=== PATIENT | female | born 1980 | race Caucasian/White ===

== ENCOUNTER 2020-11-01 13:59 | Emergency (ER) | payer OTHER, SELFPAY ==
--- NOTE | ~2020-11-01 | XR_ITS ---
EXAMINATION: XR ankle RT min 3V, XR foot RT min 3V DATE: 11/01/2020 14:37 INDICATION: None TECHNIQUE: 1. Anteroposterior, mortise, additional oblique and lateral view of the right ankle were obtained. 2. Dorsoplantar, two oblique and lateral views of the right foot were obtained. COMPARISON: None. FINDINGS: Alignment of the right foot and ankle is normal. No fracture. 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 Bunion with cystic change at the medial head of the first metatarsal and mild ov erlying soft tissue swelling. Moderate-sized plantar calcaneal spur. No ankle joint effusion. The sof t tissues are unremarkable. IMPRESSION: 1. No acute osseous abnormality. Reviewed, dictated and finalized at location A. [employer] IMPRESSION: 1. No acute osseous abnormality.
[2020-11-01 14:10] VITALS: BP 157/94; PULSE 85; RESP 20; TEMP 36.1; O2SAT 98
--- NOTE | 2020-11-01 14:14 | ED.LOWEXIN ---
HPI - Extremity Injury (Lower) General Chief Complaint: Extremity Injury, Lower Stated Complaint: Lower Extremity Injury, Lower Time Seen by Provider: 11/01/20 14:14 Source: patient and RN notes reviewed History of Present Illness HPI Narrative: Patient is a 40-year-old female who presents the urgent care with complaints of right foot and ankle pain. Patient states that she tripped over her own feet approximately week and a half ago and believes that she rolled the right ankle. Patient states that she has elevated the foot and used Excedrin for pain. States the swelling has gone down tremendously but she is still having pain especially with weightbearing and ambulation. Patient denies hitting her head or any other injuries due to the fall. No other acute complaints. No acute distress noted. Patient aware of the plan of care. Some parts of this dictation were generated by voice recognition software and may contain typographical and/or grammatical inaccuracies. Related Data Home Medications Medication Instructions Recorded Confirmed No Home Medications 11/01/20 11/01/20 Allergies Allergy/AdvReac Type Severity Reaction Status Date / Time No Known Allergies Allergy Verified 11/01/20 14:21 Review of Systems Review of Systems: Narrative: CONSTITUTIONAL: Denies fever, chills, or sweats. EYES: Denies visual changes, redness, or discharge. ENT: Denies rhinorrhea, congestion, sore throat, or otalgia. CARDIOVASCULAR: Denies chest pain, palpitations, or edema. RESPIRATORY: Denies cough or dyspnea. GASTROINTESTINAL: Denies abdominal pain, nausea, vomiting, or diarrhea. GENITOURINARY: Denies dysuria or hematuria. SKIN: Denies rash or itching. MUSCULOSKELETAL: Reports of right foot and ankle pain due to fall NEUROLOGIC: Denies headache, numbness, or weakness. All other systems reviewed are negative, except as documented in HPI. PMFSH Comments At the time of my signature, I reviewed and agree with the nursing past medical, surgical, social, and family history. There is no relevant family history pertinent to the patient complaint. Exam Narrative: Exam Narrative: GENERAL: This is a well-nourished, well-developed patient, in no apparent distress. HEAD: normocephalic, atraumatic. EYES: PERRL. Sclera clear/white. Vision is grossly intact. EARS: External ears normal NOSE: External nose normal with no obvious nasal discharge, nares without redness, no rhinorrhea. THROAT: Mucous membranes moist NECK: Neck supple SKIN: warm, intact with no suspicious lesions or rash, good texture and turgor. NEURO: awake, alert, and oriented to person, place and time. There were no obvious focal neurologic abnormalities. EXTREMITIES: Mild edema and ecchymosis noted to the dorsal aspect of the right foot with mild medial malleolus tenderness. No obvious deformity. Range of motion within normal limits with pain. Positive strong right pedal pulse with capillary refill less than 2 seconds. Course Vital Signs Vital signs: Vital Signs Temperature 96.9 F L 11/01/20 14:10 Pulse Rate 85 11/01/20 14:10 Respiratory Rate 20 11/01/20 14:10 Blood Pressure 157/94 H 11/01/20 14:10 Pulse Oximetry 98 11/01/20 14:10 Temperature 96.9 F L 11/01/20 14:10 Pulse Rate 85 11/01/20 14:10 Respiratory Rate 20 11/01/20 14:10 Blood Pressure 157/94 H 11/01/20 14:10 Pulse Oximetry 98 11/01/20 14:10 Reviewed?patient is informed that they may have pre-hypertension or hypertension based on a blood pressure reading in the department. I recommend the patient call the primary care provider listed on their discharge instructions or a physician of their choice this week to arrange follow-up for further evaluation of possible pre-hypertension or hypertension. MDM - Extremity Injury (Lower) MDM Narrative Medical decision making narrative: Reviewed x-ray results with the patient. She is aware the x-ray was negative for any acute fracture or deformity.
[2020-11-01 14:50] VITALS: BP 154/100
== END 2020-11-01 14:50 | disposition home or self-care (01) ==
PROVIDERS: Emergency Provider Nurse Practitioner Family; PCP Nurse Practitioner Family
DX: S93.401A Sprain of unspecified ligament of right ankle, initial encounter (principal); S96.911A Strain of unspecified muscle and tendon at ankle and foot level, right foot, initial encounter; X50.9XXA Other and unspecified overexertion or strenuous movements or postures, initial encounter; M77.31 Calcaneal spur, right foot
CPT/HCPCS: 73610; 73630; 99213; G0463

== ENCOUNTER 2022-05-05 16:50 | Emergency (ER) | payer SELFPAY ==
[2022-05-05 16:54] VITALS: PULSE 81; RESP 20; TEMP 36.9; O2SAT 98
[2022-05-05 17:12] VITALS: BP 180/116
--- NOTE | 2022-05-05 17:23 | ED.SKABFB ---
HPI - Skin/Abscess/Foreign Bdy General Chief complaint: Skin/Abscess/Foreign Body Stated complaint: poson nikita Time Seen by Provider: 05/05/22 17:19 Source: patient and RN notes reviewed Mode of arrival: ambulatory Limitations: no limitations History of Present Illness HPI narrative: 41-year-old female presents with concern for poison nikita. Reports a rash after doing yard work. Reports it started last night. Reports rash to the arms and under her left eye. In a second complaint she reports right lower dental pain and swelling. She denies fever, body aches, chills, sweats, trouble swallowing, headache. MD complaint: rash Related Data Allergies Allergy/AdvReac Type Severity Reaction Status Date / Time No Known Allergies Allergy Verified 05/05/22 16:59 Review of Systems Review of Systems: CONSTITUTIONAL: Denies malaise, chills, sweats, or fever. EYES: Denies redness, or discharge. ENT: Denies rhinorrhea, congestion, swollen lips, swollen tongue. Reports left lower dental pain and swelling CARDIOVASCULAR: Denies chest pain, palpitations, or edema. RESPIRATORY: Denies cough or dyspnea. GASTROINTESTINAL: Denies abdominal pain, nausea, vomiting SKIN: Reports itchy rash to the arms, left cheek MUSCULOSKELETAL: Denies joint pain or myalgia. NEUROLOGIC: Denies headache. All systems reviewed & are unremarkable except as noted in HPI and below PMFSH Comments At time of signature, agree with nursing past medical, surgical, social and family history. There is no relevant family history pertinent to the presenting complaint Exam Narrative: GENERAL: Well-appearing, well-nourished, and in no acute distress. HEAD: Normocephalic, atraumatic. EYES: PERRLA, conjunctivae clear, and EOMI. ENT: Mucous membranes moist. Oropharynx without edema, erythema or lesions.. No broken teeth, missing teeth. Caries noted to the left lower side, left jaw swelling noted NECK: Supple. No lymphadenopathy CHEST: Clear to auscultation. No respiratory distress. HEART: Regular rate and rhythm. SKIN: Warm, dry. Patches of linear vesicles, papules noted to the arms, under the left eye NEURO: Alert and oriented x3. PSYCH: Normal mood and affect Course Course Emergency Course: Patient is aware of diagnosis, understands and agrees to treatment plan. Anticipatory guidance given. Patient agrees to follow-up as directed and is aware of reasons to seek care at the emergency department. Portions of this record may have been created with voice recognition software Level of Care: Express Care Visit Vital Signs Vital signs: Vital Signs Temperature 98.4 F 05/05/22 16:54 Pulse Rate 81 05/05/22 16:54 Respiratory Rate 20 05/05/22 16:54 Pulse Oximetry 98 05/05/22 16:54 Oxygen Delivery Room Air 05/05/22 16:54 Temperature 98.4 F 05/05/22 16:54 Pulse Rate 81 05/05/22 16:54 Respiratory Rate 20 05/05/22 16:54 Blood Pressure 180/116 H 05/05/22 17:12 Pulse Oximetry 98 05/05/22 16:54 Oxygen Delivery Room Air 05/05/22 16:54 Reviewed. MDM - Skin/Abscess/Foreign Bdy MDM Narrative Medical decision making narrative: Does not appear at this time to be erythema multiforme, bullous, SJS, TEN; no evidence at this time to suggest RMSF, endocarditis or Lyme disease; patient looks well, nontoxic and is tolerating oral intake; no neurologic signs or symptoms; no headache, photophobia or neck pain; afebrile; appropriate for initial outpatient treatment; discussed the importance of follow-up, patient agrees; question, viral exanthema, contact dermatitis, allergic dermatitis, eczema, urticaria. No soft palate or uvula edema, no tongue, lip edema or other mucosal involvement, no respiratory compromise, no stridor, no wheezing, no wheezing, no history of syncope, no hypotension, no nausea, vomiting, or diarrhea. Instructed patient to go to nearest ER immediately for any worsening symptoms including but not limited to: fever, spreading rash, pain, sore
== END 2022-05-05 17:30 | disposition home or self-care (01) ==
PROVIDERS: Emergency Provider Nurse Practitioner
DX: L25.9 Unspecified contact dermatitis, unspecified cause (principal); K04.7 Periapical abscess without sinus
CPT/HCPCS: 99213; G0463

== ENCOUNTER 2023-07-06 15:15 | Emergency (ER) | payer SELFPAY ==
--- NOTE | ~2023-07-06 | XR_ITS ---
EXAM: XR finger 1st LT min 2V DATE: 07/06/2023 15:52 HISTORY: KNI. CANNOT BEND LT THUMB FOR 2 MONTHS. . COMPARISON: None available. FINDINGS: Decreased mineralization. No fracture or dislocation. No lytic or blastic lesion. Joint sp aces are maintained. No erosion or periosteal change. Soft tissues within normal limits. IMPRESSION: No acute osseous finding in the left thumb. Reviewed, dictated and finalized at location K.
[2023-07-06 15:22] VITALS: BP 207/120; PULSE 81; RESP 16; TEMP 36.8; O2SAT 98
--- NOTE | 2023-07-06 16:17 | ED.UPPEXIN ---
HPI - Extremity Injury (Upper) General Chief Complaint: Extremity Injury, Upper Stated Complaint: can't bend left thumb History of Present Illness HPI narrative: Pt is a 42 y/o female, presents to with left thumb pain and decreased ROM, unable to flex at the IP joint, without known trauma. She has no numbness or swelling otherwise, no hx of gout and she denies fevers or chills. She has taken NSAIDs and applied ice with mild relief. She denies any other modifying factors. She is right hand dominant. She denies chance of Related Data Allergies Allergy/AdvReac Type Severity Reaction Status Date / Time No Known Allergies Allergy Verified 05/05/22 16:59 Review of Systems Musculoskeletal: Comments: refer to HPI Exam Const: General: cooperative, healthy appearing, comfortable, no acute distress, well developed, alert, awake and Physically active Nutritional Appearance: average body habitus and well nourished Orientation/consciousness: oriented to person, oriented to place, oriented to time and patient oriented x3 Limitations: no limitations HENMT: Head: normal to inspection and No palpable skull fracture present Face/Nose/Sinus: Normal external nose present and Normal nares present Throat: posterior oropharynx normal and tonsils normal Eyes: General: appearance normal, both eyes and all related structures Visual Fung: normal visual fung by confrontation Alignment and Position: alignment normal and position normal Periorbital: periorbital findings normal Conjunctivae: conjunctivae normal Sclera: sclerae normal EOM: EOMs intact bilaterally Neck: Neck: normal visual inspection, full ROM and no lymphadenopathy Resp: Effort & Inspection: normal respiratory effort Auscultation: clear to auscultation bilaterally Percussion: percussion normal Cardio: Rate: regular rate Rhythm: regular rhythm Heart sounds: S1 normal heart sound present and S2 normal heart sound present Skin: Other: no erythema or gross swelling Neuro: General: oriented to person, oriented to place, oriented to time and patient oriented x3 Cranial nerves: Yes CN's II-XII intact bilaterally Extrem: Other: left thumb is not swollen or deformed. Distal PMS intact. pt is unable to flex at the IP joint. Extension is intact. ROM at the 1st MCP joint is also intact. Course Course Emergency Course: imaging is unremarkable for acute findings. Suspect inflammation versus tension injury. Plan to treat with short steroid course and hand FU if symptoms are not improving. I have stressed FU with PCP as she has elevated BP readings here today, as well as, during prior visits upon chart review. I have repeated her BP manually in the RUE and she is now 160/100 after resting in the room. She agrees with FU plan Level of Care: Express Care Visit ([id number]) Vital Signs Vital signs: Vital Signs Temperature 36.8 C 07/06/23 15:22 Pulse Rate 81 07/06/23 15:22 Respiratory Rate 16 07/06/23 15:22 Blood Pressure 207/120 H 07/06/23 15:22 Pulse Oximetry 98 07/06/23 15:22 Oxygen Delivery Room Air 07/06/23 15:22 Temperature 36.8 C 07/06/23 15:22 Pulse Rate 81 07/06/23 15:22 Respiratory Rate 16 07/06/23 15:22 Blood Pressure 207/120 H 07/06/23 15:22 Pulse Oximetry 98 07/06/23 15:22 Oxygen Delivery Room Air 07/06/23 15:22 MDM - Extremity Injury (Upper) MDM Narrative Medical decision making narrative: suspect inflammation within the joint, lower concern for gout given lack of clinical findings supporting gouty arthritis. Will treat with short steroid course, RICE, FU with PCP and hand if symptoms are not improving. Differential Diagnosis Differential diagnosis: Likely other (fracture, OA, tendon injury) Discharge Plan Discharge Clinical Impression: Chronic pain of left thumb Patient Disposition: Home, Self-Care Condition: Stable Instructions: Antibiotic Form, Swollen Joint (ED) Additional Ins
== END 2023-07-06 16:32 | disposition home or self-care (01) ==
PROVIDERS: Emergency Provider Nurse Practitioner Family
DX: G89.29 Other chronic pain (principal); M79.645 Pain in left finger(s)
CPT/HCPCS: 73140; 99213; G0463